=== PATIENT | male | born 1980 | race Caucasian/White ===

== ENCOUNTER → 2016-11-29 | Day surgery (SDC) | payer BC ==
[~2016-11-29] VITALS: Ht 180.3 cm; Wt 75.0 kg
[~2016-11-29] MED LIST: AMPICILLIN/SULBAC 3 GM/NS 100 ML IV SCH; BACITRACIN TOP OINT 15 GM TUBE ONE; CHLORHEXIDINE GLUCONATE 2 % 1 PACK (2 CLOTHS) TOPICAL PRN; FAMOTIDINE 20 MG/2 ML VIAL ONE; INSULIN HUMAN REGULAR 1,000 UNITS/10 ML VIAL SQ PRN; LACTATED RINGER'S 1000 ML IV PRN; METOPROLOL TARTRATE 25 MG TAB PO PRN; MICROFIBRILLAR COLLAGEN HEMOSTAT 1 GM PKT ONE; MIDAZOLAM HCL 2 MG/2 ML VIAL ONE; ONDANSETRON HCL 4 MG/2 ML VIAL IV PUSH ONE; OXYMETAZOLINE HCL 0.05% 15 ML NASAL SPRAY ONE; POVIDONE IODINE 5% (ANTISEPSIS KIT) 4 APPLICATIONS EACH NARE PRN; PROPOFOL 200 MG/20 ML AMP IV ONE; SODIUM CHLORID 0.9% 500 ML IV PRN
[2016-11-29 11:35] VITALS: BP 120/82; PULSE 58; RESP 16; TEMP 97.7; O2SAT 99
--- NOTE | 2016-12-08 15:35 | MP ---
cc: JORGE L MUÑOZ M.D. DATE OF SURGERY: November 29, [address] Jorge L Muñoz. PREOPERATIVE DIAGNOSIS 1. Adenotonsillar hypertrophy. 2. Chronic tonsillitis. POSTOPERATIVE DIAGNOSIS 1. Adenotonsillar hypertrophy. 2. Chronic tonsillitis. OPERATION PERFORMED Adenotonsillectomy. INDICATIONS Documented in the history and physical. DESCRIPTION OF OPERATION The patient was taken to OR #2 and placed in the supine position. Following induction of general anesthesia and intubation a shoulder roll, a Chris head drape and a McIvor mouth gag were put in place. The tonsils were removed using ArthroCare Coblator technique. A few sites of venous bleeding were cauterized using the bipolar cautery. When this was completed the adenoids were removed using the suction Bovie at 45 suarez. The stomach was aspirated of a few ccs of cloudy gastric contents using a #18 [place] sump NG tube. When this was completed the mouth gag was removed and the procedure was terminated. The patient was reversed from anesthesia and taken to recovery in good condition. There were no complications. Blood loss was less than 10 mL. MD NIYA Weinstein/MARCIE /8:52 AM /3:21 PM
== END | disposition home or self-care (01) ==
LOC: PHSDC 08:05
PROVIDERS: ATTEND Otolaryngology
DX: J35.3 Hypertrophy of tonsils with hypertrophy of adenoids (principal); J35.01 Chronic tonsillitis
CPT/HCPCS: 00170; 42821; 88304; J0295; J2250; J2405; J3010; J7120